=== PATIENT | female | born 1995 | race Caucasian/White ===

== ENCOUNTER 2024-01-05 16:48 | Emergency (ER) | payer OTHER ==
[~2024-01-05] VITALS: Ht 177.8 cm; Wt 57.6 kg
[2024-01-05 17:19] LABS: BASOPHILS # (AUTO) 0.1 K/uL (0.0-0.2); BASOPHILS % (AUTO) 0.8 % (0.0-2.0); EOSINOPHILS # (AUTO) 0.2 K/uL (0.0-0.7); EOSINOPHILS % (AUTO) 2.3 % (0.0-6.0); HEMATOCRIT 38 % (33-45); HEMOGLOBIN 12.5 g/dL (11.5-14.8); LYMPHOCYTES % (AUTO) 30.2 % (20.0-44.0); MEAN CORPUSCULAR HEMOGLOBIN 30 PG (26.0-33.0); MEAN CORPUSCULAR HGB CONC 33 g/dl (31.0-36.0); MEAN CORPUSCULAR VOLUME 91 fL (82-100); MONOCYTES # (AUTO) 0.6 K/uL (0.1-1.30); MONOCYTES % (AUTO) 8.3 % (2.0-12.0); NEUTROPHILS # (AUTO) 3.9 K/uL (1.8-8.9); NEUTROPHILS % (AUTO) 58.4 % (43.0-81.0); PLATELET COUNT (AUTO) 171 K/uL (150-450); RED BLOOD CELL COUNT(AUTO) 4.12 MIL/uL (4.0-5.2); RED CELL DISTRIBUTION WIDTH 13.2 % (11.5-15.0); WHITE BLOOD COUNT (AUTO) 6.7 K/uL (4.3-11.0)
[2024-01-05 17:35] LABS: ALANINE AMINOTRANSFERASE 55 U/L (12-78); ALBUMIN 3.8 g/dL (3.4-5.0); ALCOHOL, BLOOD < 3 mg/dL (0-10); ALKALINE PHOSPHATASE 50 U/L (46-116); ASPARTATE AMINOTRANSFERASE 20 U/L (15-37); BILIRUBIN,DIRECT 0.2 mg/dL (0.0-0.2); BILIRUBIN,TOTAL 0.7 mg/dL (0.2-1.0); CALCIUM, SERUM 8.8 mg/dL (8.5-10.1); CARBON DIOXIDE 29 mmol/L (21-32); CHLORIDE 105 mmol/L (98-107); CREATININE 0.6 mg/dL (0.6-1.3); GLUCOSE 98 mg/dL (74-106); POTASSIUM 3.7 mmol/L (3.5-5.1); SODIUM SERUM 140 mmol/L (136-145); TOTAL PROTEIN, SERUM 6.8 g/dL (6.4-8.2)
[2024-01-05 17:36] LABS: SALICYLATE 1.4 mg/dL (2.8-20.0)
[2024-01-05 17:37] LABS: ACETAMINOPHEN <10 ug/ml (10-30)
[2024-01-05 18:52] LABS: UREA NITROGEN, BLOOD 9 mg/dL (7-18)
[2024-01-05 19:16] LABS: APPEARANCE,URINE Cloudy (CLEAR); BILIRUBIN,URINE Negative (NEGATIVE); BLOOD, URINE Negative Ery/uL (NEGATIVE); COLOR,URINE YELLOW (YELLOW); KETONES,URINE Negative (NEGATIVE); LEUKOCYTE ESTERASE ,URINE Negative (NEGATIVE); NITRITE, URINE Negative (NEGATIVE); PROTEIN,URINE Negative (NEGATIVE); UGLUCOSE Negative (NEGATIVE); UROBILINOGEN,URINE 0.2 EU/dL (0.2)
[2024-01-05 19:21] LABS: PREGNANCY TEST URINE QUAL NEGATIVE (NEGATIVE)
[2024-01-05 19:45] LABS: AMPHETAMINE, URINE NEGATIVE (NEGATIVE); BARBITURATE, URINE NEGATIVE (NEGATIVE); BENZODIAZEPINE, URINE NEGATIVE (NEGATIVE); COCCAINE, URINE NEGATIVE (NEGATIVE); OPIATE, URINE NEGATIVE (NEGATIVE); PHENCYCLIDINE SCREEN,URINE NEGATIVE (NEGATIVE)
[2024-01-05 19:48] LABS: CANNABINOID, URINE POSITIVE (NEGATIVE)
[2024-01-05] MEDS ORDERED: diphenhydrAMINE HCL 50 MG/ML VIAL ONE (23:57)
[2024-01-05] MEDS ORDERED: OLANZAPINE 10 MG VIAL IM ONE (23:58)
[2024-01-05] MEDS ORDERED: LORAZEPAM INJ 2 MG/ML VIAL ONE (23:58)
[2024-01-06] MEDS: OLANZAPINE 10 MG VIAL IM ONE (00:06)
[2024-01-06] MEDS: diphenhydrAMINE HCL 50 MG/ML VIAL IM ONE (00:06)
[2024-01-06] MEDS: LORAZEPAM INJ 2 MG/ML VIAL IM ONE (00:06)
[2024-01-06 05:56] VITALS: BP 103/52; TEMP 98; O2SAT 99
== END 2024-01-06 05:57 | disposition home or self-care (01) ==
LOC: ER 17:35
DX: F29 Unspecified psychosis not due to a substance or known physiological condition (principal); Z20.822 Contact with and (suspected) exposure to COVID-19
CPT/HCPCS: 99285; 96372 ×2; 93005; 85025; 80048; 80076; 84703; 81003; 36415; 87426; 80143; 80320; 80307; J2060; J1200; J3490; G0480